=== PATIENT | female | born 1965 | race Caucasian/White ===

== ENCOUNTER → 2017-06-16 | Outpatient (CLI) | payer BC ==
--- NOTE | 2017-06-17 09:40 | MM ---
Reason for exam: screening (asymptomatic). Last mammogram was performed 11 years and 10 months ago. History: Patient is postmenopausal. Physical Findings: A clinical breast exam by your physician is recommended on an annual basis and results should be correlated with mammographic findings. MG Screening Mammo w CAD Bilateral CC and MLO view(s) were taken. No prior studies available for comparison. There are scattered fibroglandular densities. No suspicious abnormality. ASSESSMENT: Negative, BI-RAD 1 RECOMMENDATION: Routine screening mammogram of both breasts in 1 year.
== END | disposition home or self-care (01) ==
LOC: RADMAMWWP 16:38
PROVIDERS: ATTEND Family Medicine
DX: Z12.31 Encounter for screening mammogram for malignant neoplasm of breast (principal)

== ENCOUNTER → 2020-07-14 | Outpatient (CLI) | payer OTHER ==
[2020-07-14 14:48] LABS: Basophils # (A) 0.1 k/uL (0-0.2); Basophils % (A) 1 %; Eosinophils # (A) 0.2 k/uL (0-0.7); Eosinophils % (A) 2 %; HCT 53.2 % (34.0-46.0); HGB 17.1 gm/dL (11.4-16.0); Lymphocytes # (A) 2.8 k/uL (1.0-4.8); Lymphocytes % (A) 26 %; MCH 33.4 pg (25.0-35.0); MCHC 32.2 g/dL (31.0-37.0); MCV 103.8 fL (80.0-100.0); Macrocytosis Slight; Mean Platelet Volume 6.6; Monocytes # (A) 0.6 k/uL (0-1.0); Monocytes % (A) 6 %; Neutrophils % (A) 65 %; Platelet Count 274 k/uL (150-450); RBC 5.12 m/uL (3.80-5.40); RDW 13.4 % (11.5-15.5); WBC 10.7 k/uL (3.8-10.6)
== END | disposition home or self-care (01) ==
LOC: LABPAT 14:02
PROVIDERS: ATTEND Orthopaedic Surgery
DX: Z01.818 Encounter for other preprocedural examination (principal); T84.89XD Other specified complication of internal orthopedic prosthetic devices, implants and grafts, subsequent encounter
CPT/HCPCS: 36415; 80051; 85025

== ENCOUNTER 2020-07-18 06:17 | Day surgery (SDC) | payer BC, OTHER ==
[2020-07-17 10:44] VITALS: BMI 33.3
--- NOTE | 2020-07-17 11:05 | HP ---
HISTORY AND PHYSICAL CHIEF COMPLAINT: Right ankle pain. HISTORY OF PRESENT ILLNESS: The patient is a 55-year-old female who presents after undergoing open reduction and internal fixation of her right distal fibula fracture in 2013 with increasing symptoms recently over hardware. Typically she ambulates independently. Currently she is using a walking boot. She takes Percocet 3 times a day. PAST MEDICAL HISTORY: Significant for asthma, depression, seizures, emphysema, CVA, hypertension. PAST SURGICAL HISTORY: Significant for previous right ankle surgery in addition to previous gastric procedure. CURRENT MEDICATIONS: Atenolol, cyclobenzaprine, lovastatin, Plavix, oxybutynin, Percocet. She notes allergies to DEMEROL. FAMILY HISTORY: Unknown. SOCIAL HISTORY: Significant for 1 pack per day tobacco use in addition to daily alcohol use. 16 POINT REVIEW OF SYSTEMS: Otherwise reviewed and is noncontributory. PHYSICAL EXAMINATION: On examination, the patient is approximately 5 foot 3 inch, 200 pounds of endomorphic habitus. HEENT: Exam is nonfocal. NECK: Supple. She has painless passive motion right hip. She is nontender about the right knee and proximal fibula. On examination of right ankle, she has tenderness about the lateral hardware. The lateral incision is well healed with no warmth or erythema. 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 Ankle motion 0-30 degrees of flexion. Her distal neurovascular exam appears to be intact. X-rays of the right ankle obtained in the office show previous ORIF of the distal fibula along with syndesmotic fixation. IMPRESSION: 1. History of ORIF, right distal fibular fracture with syndesmotic fixation with symptomatic hardware. 2. History of CVA with residual right hemiplegia. RECOMMENDATIONS: I talked to the patient and her regarding her condition along with treatment options. At this point. She notes she is symptomatic and opts to proceed with surgery. We will plan to proceed with removal of her hardware. We will likely put her back in her fracture boot after the procedure. She did hold her Plavix prior to the procedure and will likely restart that directly thereafter. MMODL / IJN: [id number] /
[~2020-07-18 06:17] MED LIST: DEXAMETHASONE SOD PHOSPHATE 10 MG/ML 1 ML VIAL IV ONE; LACTATED RINGERS 1,000 ML IV SCH; LIDOCAINE 1% (10MG/ML) FOR IV START INTRADERMA PRN; MIDAZOLAM 2 MG/2 ML VIAL IV PRN; ONDANSETRON 4 MG/2 ML VIAL IVP ONE
--- NOTE | 2020-07-18 07:44 | P.ANPRN ---
Procedure Note - Anesthesia - Nerve Block Performed Right Other (see comment) Time Out Performed: Yes (0717) Date of Procedure: 07/18/20 Procedure Start Time: 07:18 Procedure Stop Time: 07:35 Location of Patient: PreOp Indication: Acute Post-Operative Pain, Analgesia, Requested by Surgeon Specifically requested for management of pain by : Osvaldo Crooks Sedation Type: Sedate with meaningful contact maintained Preparation: Sterile Prep Position: Left Lateral Catheter: None Needle Types: Pajunk Needle Gauge: 20 Ultrasound used to visualize needle placement: Yes Ultrasound used to observe medication spread: Yes Injectate: Other (see comment) (0.5% ropivacaine 20 mL each site) Blood Aspirated: No Pain Paresthesia on Injection Noted: No Resistance on Injection: Normal Image Stored and Saved: Yes (R POPLITEAL AND R ADDUCTOR CANAL BLOCK) Events: Uneventful and Well Tolerated
[2020-07-18] MEDS ORDERED: ROPIVACAINE 5 MG/ML 30 ML VIAL ONE (07:49)
[2020-07-18] MEDS ORDERED: HYDROmorphone (PF) 1 MG/ML ONE (07:49)
[2020-07-18] MEDS ORDERED: ROCURONIUM BROMIDE 10 MG/ML 5 ML VIAL IV ONE (07:49)
[2020-07-18] MEDS ORDERED: fentaNYL (PF) 50 MCG/ML 2 ML AMP ONE (07:49)
[2020-07-18] MEDS ORDERED: NEOSTIGMINE 1 MG/ML 10 ML VIAL ONE (07:49)
[2020-07-18] MEDS ORDERED: LIDOCAINE 1% INJ 10MG/ML (20 ML MDV) ONE (07:49)
[2020-07-18] MEDS ORDERED: GLYCOPYRROLATE 0.2 MG/ML 2 ML VIAL ONE (07:49)
[2020-07-18] MEDS ORDERED: PROPOFOL 10 MG/ML 20 ML VIAL IV ONE (07:49)
[2020-07-18] MEDS ORDERED: ceFAZolin 1,000 MG in SODIUM CHLORIDE 0.9% 1,000 ML IRRIGATION ONE (08:20)
--- NOTE | 2020-07-18 09:08 | P.OP ---
Date of Procedure: 07/18/20 Preoperative Diagnosis: Irritating hardware right lateral ankle Postoperative Diagnosis: Same Procedure(s) Performed: Removal hardware right lateral ankle including syndesmotic screw and one third tubular plate Anesthesia: MINNA Surgeon: Osvaldo Crooks Estimated Blood Loss (ml): 5 Pathology: none sent Condition: stable Disposition: PACU Indications for Procedure: The patient's a 55-year-old female who previously underwent fixation of a right lateral ankle fracture with syndesmotic fixation who presents many years later with irritation over the hardware. A discussion of the risks and benefits of hardware removal was made with the patient. She opted to proceed. Operative v ersus to include infection, neurovascular injury, development of blood clots, possible refracture, possible need for subsequent procedures was discussed. Informed consent was obtained. Operative Findings: As below Description of Procedure: The patient was brought to the operating room, and after induction of general anesthesia the right lower extremity was prepped and draped in normal fashion. The tourniquet was inflated to 270 mmHg. The previous lateral incision was utilized extending approximately 8 cm. Skin was incised sharply. Subcutaneous tissues were divided bluntly. Electrocautery was used for hemostasis. The lateral plate was identified. The syndesmotic screw was removed. The remaining screws were removed including the lag screw. The plate was then removed. The wound was thoroughly irrigated. The subcu change tissues reapproximated interrupted 2-0 Vicryl sutures. The skin was reapproximated with 3-0 subcuticular Prolene suture. Steri-Strips were applied. A sterile dressing was applied in addition to her walking boot. The tourniquet was deflated with less than 30 minutes total tourniquet time. The patient was awoken from general anesthesia and transferred to recovery room in good condition. Blood loss was estimated at 5 mL. No complications were incurred.
[2020-07-18 09:09] VITALS: TEMP 96.9
[2020-07-18] MEDS: HYDROmorphone 0.5 MG/0.5 ML SYRINGE IVP PRN ×4 (09:22→09:39)
[2020-07-18] MEDS ORDERED: LABETALOL SYRINGE 5 MG/ML IVP ONE (09:30)
[2020-07-18] MEDS ORDERED: LACTATED RINGERS 1,000 ML IV ONE (09:34)
[2020-07-18 09:48] VITALS: RESP 16
[2020-07-18] MEDS ORDERED: oxyCODONE-APAP 10-325MG 1 EACH TAB PO ONE (10:00)
[2020-07-18 10:29] VITALS: BP 133/67; PULSE 77
== END 2020-07-18 11:04 | disposition home or self-care (01) ==
LOC: OR 06:17
PROVIDERS: ATTEND Orthopaedic Surgery
DX: T84.89XD Other specified complication of internal orthopedic prosthetic devices, implants and grafts, subsequent encounter (principal); I69.351 Hemiplegia and hemiparesis following cerebral infarction affecting right dominant side; J45.909 Unspecified asthma, uncomplicated; F32.9 Major depressive disorder, single episode, unspecified; J43.9 Emphysema, unspecified; I10 Essential (primary) hypertension; E78.5 Hyperlipidemia, unspecified; F17.210 Nicotine dependence, cigarettes, uncomplicated; Z87.81 Personal history of (healed) traumatic fracture; Z79.891 Long term (current) use of opiate analgesic; Z86.69 Personal history of other diseases of the nervous system and sense organs; Z98.890 Other specified postprocedural states; Z79.899 Other long term (current) drug therapy; Z79.02 Long term (current) use of antithrombotics/antiplatelets; Z88.5 Allergy status to narcotic agent; Z97.2 Presence of dental prosthetic device (complete) (partial); Z87.19 Personal history of other diseases of the digestive system
CPT/HCPCS: 20680; 64447; 64450; 76942; J2250; J1100; J2710; J0690 ×2; J2405; J2001; J3010; J1170 ×2; J2795; J2704; 64445

== ENCOUNTER 2020-11-03 15:05 | Inpatient (IN) | payer OTHER ==
[2020-11-03] MEDS ORDERED: ALBUTEROL HFA INHALER INHALATION STA (15:27)
[2020-11-03] MEDS ORDERED: ALBUTEROL HFA INHALER INHALATION PRN (15:27)
--- NOTE | 2020-11-03 15:30 | ED ---
General Adult HPI - General Chief complaint: Shortness of Breath Stated complaint: +Covid,LUIS Time Seen by Provider: 11/03/20 15:21 Source: patient, RN notes reviewed Mode of arrival: wheelchair Limitations: no limitations - History of Present Illness Initial comments: Patient is a pleasant 55-year-old female presenting to the emergency Department with complaints of difficulty breathing. Onset of symptoms was 3-4 days ago. Patient does have cough with some productive sputum. No fevers. Patient has been fatigued and achy. Patient did go to her doctor today and was found to have low oxygen. Patient did have covid test positive. Patient does have history of stroke and difficulty speaking. Family helps provide history. - Related Data Home Medications Medication Instructions Recorded Confirmed ALPRAZolam [Xanax] 0.25 mg PO Q6HR PRN 05/23/14 07/18/20 Albuterol Inhaler (Mhu) [Ventolin 2 puff INHALATION DIRECTED PRN 05/23/14 07/18/20 Hfa Inhaler (Mhu)] Cholecalciferol [Vitamin D3] 1,000 unit PO BID 05/23/14 07/18/20 Clopidogrel [Plavix] 75 mg PO DAILY 05/23/14 07/18/20 Lovastatin [Mevacor] 20 mg PO HS 05/23/14 07/18/20 Oxybutynin Chloride [Ditropan] 5 mg PO TID 05/23/14 07/18/20 atenoloL [Tenormin] 25 mg PO HS 05/23/14 07/18/20 lamoTRIgine [LaMICtal] 200 mg PO BID 05/23/14 07/18/20 oxyCODONE-APAP 10-325MG [Percocet 1 tab PO Q6HR PRN 05/23/14 07/18/20 10-325 mg] hydrOXYzine pamoate [Vistaril] 50 mg PO BID 07/17/20 07/18/20 Allergies Allergy/AdvReac Type Severity Reaction Status Date / Time meperidine HCl [From Demerol] Allergy Swelling Verified 11/03/20 16:40 Review of Systems ROS Statement: Those systems with pertinent positive or pertinent negative responses have been documented in the HPI. ROS Other: All systems not noted in ROS Statement are negative. Constitutional: Denies: fever Eyes: Denies: eye pain ENT: Denies: ear pain Respiratory: Reports: cough, dyspnea Cardiovascular: Denies: chest pain Endocrine: Reports: fatigue Gastrointestinal: Denies: abdominal pain Genitourinary: Denies: dysuria Musculoskeletal: Denies: back pain Skin: Denies: rash Neurological: Denies: weakness Past Medical History Past Medical History: CVA/TIA Additional Past Medical History / Comment(s): RIGHT SIDED WEAKNESS, LAST SEIZURE YEARS AGO, SPEECH DEFICIT, afo brace to right foot to prevent foot drop History of Any Multi-Drug Resistant Organisms: None Reported Past Surgical History: Hernia Repair, Orthopedic Surgery, Tubal Ligation Additional Past Surgical History / Comment(s): UMBILICAL HERNIA REPAIR, WITH MESH IN AND REMOVED, WOUND VAC POST. LEFT ANKLE ORIF WITH METAL, right ankle ORIF r/t fall 05-10-2014 Past Anesthesia/Blood Transfusion Reactions: No Reported Reaction Past Psychological History: Anxiety, Depression Smoking Status: Current every day smoker Past Alcohol Use History: Heavy Past Drug Use History: None Reported General Exam Limitations: no limitations General appearance: alert, in no apparent distress Head exam: Present: normocephalic Eye exam: Present: normal appearance Neck exam: Present: normal inspection Respiratory exam: Present: wheezes, rhonchi Cardiovascular Exam: Present: regular rate, normal rhythm GI/Abdominal exam: Present: soft. Absent: tenderness Extremities exam: Present: normal inspection. Absent: pedal edema, calf tenderness Neurological exam: Present: alert Psychiatric exam: Present: normal affect, normal mood Skin exam: Present: normal color Course Vital Signs 11/03/20 11/03/20 11/03/20 15:10 15:45 16:45 Temperature 99.0 F Pulse Rate 90 76 80 Respiratory 18 20 20 Rate Blood Pressure 122/69 95/57 101/58 O2 Sat by Pulse 88 L 94 L 96 Oximetry EKG Findings - EKG Comments: EKG Findings:: Normal sinus rhythm 81. IL 140. QRS 80. QT 362. QTC 420. Normal axis. Normal QRS. No acute ST change. Medical Decision Making - Medical Decision Making Patient reevaluated and resting comfortably in bed. Patient and family updated on results and plan. Case was discussed in detail with the Suboxone, who will admit his patient. - Lab Data Result diagrams: 11/03/20 15:35 11/03/20 15:35 Lab Results 11/03/20 11/03/20 11/03/20 Range/Units 15:35 15:35 15:35 WBC 12.3 H (3.8-10.6) k/uL RBC 4.70 (3.80-5.40) m/uL Hgb 16.1 H (11.4-16.0) gm/dL Hct 48.2 H (34.0-46.0) % MCV 102.4 H (80.0-100.0) fL MCH 34.3 (25.0-35.0) pg MCHC 33.5 (31.0-37.0) g/dL RDW 12.8 (11.5-15.5) % Plt Count 263 (150-450) k/uL MPV 6.9 Neutrophils % 77 % Lymphocytes % 13 % Monocytes % 6 % Eosinophils % 2 % Basophils % 1 % Neutrophils # 9.5 H (1.3-7.7) k/uL Lymphocytes # 1.6 (1.0-4.8) k/uL Monocytes # 0.7 (0-1.0) k/uL Eosinophils # 0.2 (0-0.7) k/uL Basophils # 0.1 (0-0.2) k/uL Macrocytosis Slight PT 9.8 (9.0-12.0) sec INR 0.9 (<1.2) APTT 23.7 (22.0-30.0) sec Sodium 137 (137-145) mmol/L Potassium 3.9 (3.5-5.1) mmol/L Chloride 102 (98-107) mmol/L Carbon Dioxide 28 (22-30) mmol/L Anion Gap 7 mmol/L BUN 14 (7-17) mg/dL Creatinine 0.69 (0.52-1.04) mg/dL Est GFR (CKD-EPI)AfAm >90 (>60 ml/min/1.73 sqM) Est GFR (CKD-EPI)NonAf >90 (>60 ml/min/1.73 sqM) Glucose 120 H (74-99) mg/dL Plasma Lactic Acid Baljinder (0.7-2.0) mmol/L Calcium 9.4 (8.4-10.2) mg/dL Magnesium 1.9 (1.6-2.3) mg/dL Total Bilirubin 0.7 (0.2-1.3) mg/dL AST 27 (14-36) U/L ALT 22 (4-34) U/L Alkaline Phosphatase 71 (38-126) U/L Lactate Dehydrogenase 481 (313-618) U/L C-Reactive Protein 46.7 H (<10.0) mg/L Total Protein 7.2 (6.3-8.2) g/dL Albumin 4.2 (3.5-5.0) g/dL 11/03/20 Range/Units 15:35 WBC (3.8-10.6) k/uL RBC (3.80-5.40) m/uL Hgb (11.4-16.0) gm/dL Hct (34.0-46.0) % MCV (80.0-100.0) fL MCH (25.0-35.0) pg MCHC (31.0-37.0) g/dL RDW (11.5-15.5) % Plt Count (150-450) k/uL MPV Neutrophils % % Lymphocytes % % Monocytes % % Eosinophils % % Basophils % % Neutrophils # (1.3-7.7) k/uL Lymphocytes # (1.0-4.8) k/uL Monocytes # (0-1.0) k/uL Eosinophils # (0-0.7) k/uL Basophils # (0-0.2) k/uL Macrocytosis PT (9.0-12.0) sec INR (<1.2) APTT (22.0-30.0) sec Sodium (137-145) mmol/L Potassium (3.5-5.1) mmol/L Chloride (98-107) mmol/L Carbon Dioxide (22-30) mmol/L Anion Gap mmol/L BUN (7-17) mg/dL Creatinine (0.52-1.04) mg/dL Est GFR (CKD-EPI)AfAm (>60 ml/min/1.73 sqM) Est GFR (CKD-EPI)NonAf (>60 ml/min/1.73 sqM) Glucose (74-99) mg/dL Plasma Lactic Acid Baljinder 1.9 (0.7-2.0) mmol/L Calcium (8.4-10.2) mg/dL Magnesium (1.6-2.3) mg/dL Total Bilirubin (0.2-1.3) mg/dL AST (14-36) U/L ALT (4-34) U/L Alkaline Phosphatase (38-126) U/L Lactate Dehydrogenase (313-618) U/L C-Reactive Protein (<10.0) mg/L Total Protein (6.3-8.2) g/dL Albumin (3.5-5.0) g/dL - Radiology Data Radiology results: image reviewed (Chest x-ray reveals no acute process) Disposition Clinical Impression: COVID-19 Disposition: ADMITTED IP TO THIS HOSP Is patient prescribed a controlled substance at d/c from ED?: No Referrals: Rene Licona MD [Primary Care Provider] - 1-2 days Decision Time: 17:02
[2020-11-03 16:04] LABS: Basophils # (A) 0.1 k/uL (0-0.2); Basophils % (A) 1 %; Eosinophils # (A) 0.2 k/uL (0-0.7); Eosinophils % (A) 2 %; HCT 48.2 % (34.0-46.0); HGB 16.1 gm/dL (11.4-16.0); Lymphocytes # (A) 1.6 k/uL (1.0-4.8); Lymphocytes % (A) 13 %; MCH 34.3 pg (25.0-35.0); MCHC 33.5 g/dL (31.0-37.0); MCV 102.4 fL (80.0-100.0); Macrocytosis Slight; Mean Platelet Volume 6.9; Monocytes # (A) 0.7 k/uL (0-1.0); Monocytes % (A) 6 %; Neutrophils # (A) 9.5 k/uL (1.3-7.7); Neutrophils % (A) 77 %; Platelet Count 263 k/uL (150-450); RDW 12.8 % (11.5-15.5); WBC 12.3 k/uL (3.8-10.6)
[2020-11-03 16:15] LABS: INR 0.9 (<1.2); Partial Thromboplastin Time 23.7 sec (22.0-30.0); Prothrombin Time 9.8 sec (9.0-12.0)
[2020-11-03 16:17] LABS: ALT 22 U/L (4-34); AST 27 U/L (14-36); African American GFR (CKD) >90 (>60 ml/min/1.73 sqM); Albumin 4.2 g/dL (3.5-5.0); Alkaline Phosphatase 71 U/L (38-126); Anion Gap 7 mmol/L; Blood Urea Nitrogen 14 mg/dL (7-17); C Reactive Protein 46.7 mg/L (<10.0); Calcium 9.4 mg/dL (8.4-10.2); Carbon Dioxide 28 mmol/L (22-30); Chloride 102 mmol/L (98-107); Glucose 120 mg/dL (74-99); LDH 481 U/L (313-618); Magnesium 1.9 mg/dL (1.6-2.3); Non-African American GFR(CKD) >90 (>60 ml/min/1.73 sqM); Potassium 3.9 mmol/L (3.5-5.1); Sodium 137 mmol/L (137-145); Total Bilirubin 0.7 mg/dL (0.2-1.3); Total Protein 7.2 g/dL (6.3-8.2)
--- NOTE | 2020-11-03 16:27 | XR ---
EXAMINATION TYPE: XR chest 1V portable DATE OF EXAM: 11/03/2020 COMPARISON: Chest x-ray August 06, 2020 HISTORY: Cough, suspected covid 19 infection. TECHNIQUE: Single AP portable frontal upright view of the chest is obtained. FINDINGS: There is chronic parenchymal changes bilaterally without suspicious new focal air space op acity, pleural effusion, or pneumothorax seen. The cardiac silhouette size is stable and upper limit s of normal. Overlying EKG leads redemonstrated. The osseous structures are intact. IMPRESSION: Chronic changes without acute pulmonary infiltrate identified.
[2020-11-03] MEDS ORDERED: NALOXONE 0.4 MG/ML 1 ML VIAL IV PRN (17:03)
[2020-11-03] MEDS ORDERED: ACETAMINOPHEN TAB 325 MG TAB PO PRN (17:03)
[2020-11-03] MEDS: ENOXAPARIN 40 MG/0.4 ML SYRINGE SQ SCH (18:40)
[2020-11-03] MEDS: CHOLECALCIFEROL 1,000 UNIT TAB PO SCH (18:40)
[2020-11-03] MEDS: ZINC SULFATE 220 MG CAP PO SCH (18:40)
[2020-11-03] MEDS: DEXAMETHASONE SOD PHOSPHATE 10 MG/ML 1 ML VIAL IV SCH (18:40)
[2020-11-03] MEDS ORDERED: BENZONATATE 100 MG CAP PO PRN (18:43)
[2020-11-03] MEDS: ALBUTEROL HFA INHALER INHALATION SCH (20:01)
[2020-11-03] MEDS: lamoTRIgine 100 MG TAB PO SCH (20:22)
[2020-11-03] MEDS: DULoxetine HCL 30 MG CAPSULE.DR PO SCH (20:22)
[2020-11-03] MEDS: oxyCODONE-APAP 10-325MG 1 EACH TAB PO PRN (20:22)
[2020-11-03] MEDS: NICOTINE 14MG/24HR PATCH TRANSDERM SCH (20:22)
[2020-11-03] MEDS: ASCORBIC ACID 500 MG TAB PO SCH (20:22)
[2020-11-03] MEDS: ATORVASTATIN 10 MG TAB PO SCH (20:22)
[2020-11-03] MEDS: OXYBUTYNIN CHLORIDE 5 MG TAB PO SCH (20:31)
[2020-11-03] MEDS: busPIRone HCl 10 MG TAB PO SCH (21:01)
[2020-11-03] MEDS: SODIUM CHLORIDE 0.9% 1,000 ML IV SCH (22:02)
[2020-11-04 01:11] LABS: Ferritin 213.3 ng/mL (10.0-291.0)
[2020-11-04] MEDS: oxyCODONE-APAP 10-325MG 1 EACH TAB PO PRN ×4 (04:17→21:35)
[2020-11-04] MEDS: ALBUTEROL HFA INHALER INHALATION SCH ×4 (04:37→19:41)
[2020-11-04] MEDS: lamoTRIgine 100 MG TAB PO SCH ×2 (08:28→21:35)
[2020-11-04] MEDS: DULoxetine HCL 30 MG CAPSULE.DR PO SCH ×2 (08:28→21:35)
[2020-11-04] MEDS: hydroCHLOROthiazide 25 MG TAB PO SCH (08:28)
[2020-11-04] MEDS: CLOPIDOGREL 75 MG TAB PO SCH (08:28)
[2020-11-04] MEDS: ZINC SULFATE 220 MG CAP PO SCH (08:28)
[2020-11-04] MEDS: CHOLECALCIFEROL 1,000 UNIT TAB PO SCH (08:28)
[2020-11-04] MEDS: ASCORBIC ACID 500 MG TAB PO SCH ×2 (08:28→21:34)
[2020-11-04] MEDS: busPIRone HCl 10 MG TAB PO SCH ×3 (08:28→21:35)
[2020-11-04] MEDS: NICOTINE 14MG/24HR PATCH TRANSDERM SCH (08:29)
[2020-11-04] MEDS: ENOXAPARIN 40 MG/0.4 ML SYRINGE SQ SCH (08:29)
[2020-11-04] MEDS: DEXAMETHASONE SOD PHOSPHATE 10 MG/ML 1 ML VIAL IV SCH (08:30)
[2020-11-04] MEDS: OXYBUTYNIN CHLORIDE 5 MG TAB PO SCH ×3 (08:31→21:34)
[2020-11-04] MEDS: SODIUM CHLORIDE 0.9% 1,000 ML IV SCH (16:56)
--- NOTE | 2020-11-04 19:35 | P.HPIM ---
History of Present Illness H&P Date: 11/04/20 Chief Complaint: shortness of breath Stephanie Fraser is a 55 yo F with PMH of tobacco abuse, CVA with residual speech deficit who presented to the ED after being seen in her PCP clinic with shortness of breath over the past few days. She also complains of chest tightness cough and fever. Denies loss of sense of smell or taste. Pt was seen in PCP clinic and rapid COVID test at that time was positive. On presentation temp 99, SpO2 88% on RA, WBC 12k, procalcitonin 0.10, CRP 47. CXR no acute process. Review of Systems All systems: negative Constitutional: Reports malaise, Reports weakness, Denies chills, Denies fever Eyes: denies blurred vision, denies pain Ears, nose, mouth and throat: Denies headache, Denies sore throat Cardiovascular: Denies chest pain, Denies shortness of breath Respiratory: Reports congestion, Reports cough, Reports dyspnea Gastrointestinal: Denies abdominal pain, Denies diarrhea, Denies nausea, Denies vomiting Genitourinary: Denies dysuria, Denies hematuria Musculoskeletal: Denies myalgias Integumentary: Denies pruritus, Denies rash Neurological: Denies numbness, Denies weakness Psychiatric: Denies anxiety, Denies depression Endocrine: Denies fatigue, Denies weight change Past Medical History Past Medical History: CVA/TIA, Seizure Disorder Additional Past Medical History / Comment(s): RIGHT SIDED WEAKNESS, LAST SEIZURE YEARS AGO, SPEECH DEFICIT, afo brace to right foot to prevent foot drop History of Any Multi-Drug Resistant Organisms: None Reported Past Surgical History: Hernia Repair, Orthopedic Surgery, Tubal Ligation Additional Past Surgical History / Comment(s): UMBILICAL HERNIA REPAIR, WITH MESH IN AND REMOVED, WOUND VAC POST. LEFT ANKLE ORIF WITH METAL, right ankle ORIF r/t fall 05-10-2014 Past Anesthesia/Blood Transfusion Reactions: No Reported Reaction Past Psychological History: Anxiety, Depression Smoking Status: Current every day smoker Past Alcohol Use History: Heavy Additional Past Alcohol Use History / Comment(s): 1ppd since teens, used to drink alot years ago, doesn't drink to excess anymore since stroke Past Drug Use History: None Reported - Past Family History Father Family Medical History: Coronary Artery Disease (CAD), Diabetes Mellitus Brother(s) Family Medical History: Coronary Artery Disease (CAD) Mother Family Medical History: Coronary Artery Disease (CAD), Diabetes Mellitus Medications and Allergies Home Medications Medication Instructions Recorded Confirmed Type Clopidogrel [Plavix] 75 mg PO DAILY 05/23/14 11/03/20 History Lovastatin [Mevacor] 20 mg PO HS 05/23/14 11/03/20 History Oxybutynin Chloride [Ditropan] 5 mg PO TID 05/23/14 11/03/20 History lamoTRIgine [LaMICtal] 200 mg PO BID 05/23/14 11/03/20 History oxyCODONE-APAP 10-325MG [Percocet 1 tab PO Q6HR PRN 05/23/14 11/03/20 History 10-325 mg] Albuterol Sulfate [Albuterol 2 puff INHALATION RT-QID PRN 11/03/20 11/03/20 History Sulfate Hfa] Benzonatate [Tessalon Perles] 100 mg PO TID PRN 11/03/20 11/03/20 History DULoxetine HCL [Cymbalta] 30 mg PO BID 11/03/20 11/03/20 History Meloxicam [Mobic] 15 mg PO DAILY PRN 11/03/20 11/03/20 History amLODIPine BESYLATE/BENAZEPRIL 1 cap PO DAILY 11/03/20 11/03/20 History [amLODIPine BESYLATE/BENAZEPRIL 10-20 MG] busPIRone HCl [Buspar] 10 mg PO TID 11/03/20 11/03/20 History hydroCHLOROthiazide [Hydrodiuril] 25 mg PO DAILY 11/03/20 11/03/20 History Allergies Allergy/AdvReac Type Severity Reaction Status Date / Time meperidine HCl [From Demerol] Allergy Swelling Verified 11/03/20 18:05 Physical Exam Vitals: Vital Signs Temp Pulse Resp BP Pulse Ox 11/04/20 17:35 98.3 F 64 19 151/75 95 11/04/20 15:27 93 L 11/04/20 11:00 98.1 F 85 19 123/67 93 L 11/04/20 07:44 93 L 11/04/20 05:00 98.4 F 81 20 131/72 91 L 11/03/20 20:03 91 L 11/03/20 20:00 98.9 F 81 20 93/57 93 L 11/03/20 19:50 20 Intake and Output 11/04/20 11/04/20 11/04/20 06:59 14:59 22:59 Intake Total 600 Balance 600 Intake: Oral 600 Other: Voiding Method Toilet # Voids 1 3 General: well nourished, well developed, NAD, obese. Vitals reviewed Eyes: PERRL, EOMI, conjunctiva normal HENT: normocephalic, mucus membranes moist Neck: supple, no JVD Lungs: diminished air entry, wheezing noted, no rales CV: Regular rate and rhythm, no murmur. Peripheral pulses 2+ Abdomen: soft, nondistended, no organomegaly Lymph: no cervical or axillary LAD Skin: warm and dry. Neuro: A&Ox3, normal mood and affect Results CBC & Chem 7: 11/03/20 15:35 11/03/20 15:35 Labs: Abnormal Lab Results - Last 24 Hours (Table) 11/03/20 Range/Units 15:35 Procalcitonin 0.10 H (0.02-0.09) ng/mL Microbiology - Last 24 Hours (Table) 11/03/20 15:35 Blood Culture - Preliminary Blood No Growth after 24 hours 11/03/20 15:45 Blood Culture - Preliminary Blood No Growth after 24 hours Thrombosis Risk Factor Assmnt - Choose All That Apply Any of the Below Risk Factors Present?: Yes Each Factor Represents 1 point: Age 41-60 years, Obesity (BMI >25), Serious lung disease incl. pneumonia (< 1month) Other Risk Factors: No Other congenital or acquired thrombophilia - If yes, enter type in comment: No Thrombosis Risk Factor Assessment Total Risk Factor Score: 3 Thrombosis Risk Factor Assessment Level: Moderate Risk Assessment and Plan (1) CVA (cerebral vascular accident) Current Visit: Yes Status: Acute Code(s): I63.9 - CEREBRAL INFARCTION, UNSPECIFIED SNOMED Code(s): 461695547 (2) COVID-19 Current Visit: Yes Status: Acute Code(s): U07.1 - COVID-19 SNOMED Code(s): 304927410 (3) Chronic back pain Current Visit: Yes Status: Acute Code(s): M54.9 - DORSALGIA, UNSPECIFIED; G89.29 - OTHER CHRONIC PAIN SNOMED Code(s): 798597413 Plan: 1. COVID 19 pneumonia. Admit and start vit C, vit D, zinc. Start dexamethasone. supplemental O2 2. Hx CVA and seizure disorder. Continue lamictal 3. Chronic back pain. Continue home percocet DVT prophylaxis lovenox
[2020-11-04] MEDS: ATORVASTATIN 10 MG TAB PO SCH (21:34)
[2020-11-05] MEDS: ALBUTEROL HFA INHALER INHALATION SCH ×2 (00:47→07:34)
[2020-11-05] MEDS: oxyCODONE-APAP 10-325MG 1 EACH TAB PO PRN ×2 (01:33→08:42)
[2020-11-05] MEDS: ENOXAPARIN 40 MG/0.4 ML SYRINGE SQ SCH (08:40)
[2020-11-05] MEDS: hydroCHLOROthiazide 25 MG TAB PO SCH (08:49)
[2020-11-05] MEDS: CHOLECALCIFEROL 1,000 UNIT TAB PO SCH (08:49)
[2020-11-05] MEDS: DEXAMETHASONE SOD PHOSPHATE 10 MG/ML 1 ML VIAL IV SCH (08:49)
[2020-11-05] MEDS: busPIRone HCl 10 MG TAB PO SCH (08:49)
[2020-11-05] MEDS: CLOPIDOGREL 75 MG TAB PO SCH (08:49)
[2020-11-05] MEDS: DULoxetine HCL 30 MG CAPSULE.DR PO SCH (08:49)
[2020-11-05] MEDS: ASCORBIC ACID 500 MG TAB PO SCH (08:49)
[2020-11-05] MEDS: NICOTINE 14MG/24HR PATCH TRANSDERM SCH (08:49)
[2020-11-05] MEDS: lamoTRIgine 100 MG TAB PO SCH (08:49)
[2020-11-05] MEDS: ZINC SULFATE 220 MG CAP PO SCH (08:51)
[2020-11-05] MEDS: OXYBUTYNIN CHLORIDE 5 MG TAB PO SCH (09:03)
[2020-11-05 11:03] VITALS: BP 138/83; PULSE 78; RESP 17; TEMP 98.3
--- NOTE | 2020-11-05 11:24 | P.DS ---
Providers Date of admission: 11/03/20 17:04 Expected date of discharge: 11/05/20 Attending physician: Rene Licona MD Primary care physician: Rene Licona MD Hospital Course: Final Diagnoses: Acute Covid-19 pneumonia History of CVA History of seizure disorder Chronic back pain Hospital course: Stephanie Fraser is a 55 yo F with PMH of tobacco abuse, CVA with residual speech deficit who presented to the ED after being seen in her PCP clinic with shortness of breath over the past few days. She also complains of chest tightness cough and fever. Denies loss of sense of smell or taste. Pt was seen in PCP clinic and rapid COVID test at that time was positive. On presentation temp 99, SpO2 88% on RA, WBC 12k, procalcitonin 0.10, CRP 47. CXR no acute process. Significant clinical improvement. Patient being discharged home today in a stable condition with guarded prognosis. Smoking cessation reinforced. The impression and plan of care has been dictated as directed. : I performed a history and examination of this patient, discussed the same with the dictator. I agree with the dictator's note ,documented as a scribe. Any additional findings or plans will be noted. Patient Condition at Discharge: Stable Plan - Discharge Summary New Discharge Prescriptions: New Nicotine 14Mg/24Hr Patch [Habitrol] 1 patch TRANSDERM DAILY #30 patch dexAMETHasone [Hexadrol] See Taper PO DAILY #18 tab Zinc Sulfate [Orazinc] 220 mg PO DAILY cap Ascorbic Acid [Vitamin C] 500 mg PO BID tab Cholecalciferol [Vitamin D3 (25 Mcg = 1000 Iu)] 2,000 unit PO DAILY tab Continue oxyCODONE-APAP 10-325MG [Percocet 10-325 mg] 1 tab PO Q6HR PRN PRN Reason: Pain lamoTRIgine [LaMICtal] 200 mg PO BID Oxybutynin Chloride [Ditropan] 5 mg PO TID Lovastatin [Mevacor] 20 mg PO HS Clopidogrel [Plavix] 75 mg PO DAILY Albuterol Sulfate [Albuterol Sulfate Hfa] 2 puff INHALATION RT-QID PRN PRN Reason: Shortness Of Breath amLODIPine BESYLATE/BENAZEPRIL [amLODIPine BESYLATE/BENAZEPRIL 10-20 MG] 1 cap PO DAILY Benzonatate [Tessalon Perles] 100 mg PO TID PRN PRN Reason: Cough busPIRone HCl [Buspar] 10 mg PO TID DULoxetine HCL [Cymbalta] 30 mg PO BID hydroCHLOROthiazide [Hydrodiuril] 25 mg PO DAILY Meloxicam [Mobic] 15 mg PO DAILY PRN PRN Reason: knee pain Discharge Medication List Clopidogrel [Plavix] 75 mg PO DAILY 05/23/14 [History] Lovastatin [Mevacor] 20 mg PO HS 05/23/14 [History] Oxybutynin Chloride [Ditropan] 5 mg PO TID 05/23/14 [History] lamoTRIgine [LaMICtal] 200 mg PO BID 05/23/14 [History] oxyCODONE-APAP 10-325MG [Percocet 10-325 mg] 1 tab PO Q6HR PRN 05/23/14 [History] Albuterol Sulfate [Albuterol Sulfate Hfa] 2 puff INHALATION RT-QID PRN 11/03/20 [History] Benzonatate [Tessalon Perles] 100 mg PO TID PRN 11/03/20 [History] DULoxetine HCL [Cymbalta] 30 mg PO BID 11/03/20 [History] Meloxicam [Mobic] 15 mg PO DAILY PRN 11/03/20 [History] amLODIPine BESYLATE/BENAZEPRIL [amLODIPine BESYLATE/BENAZEPRIL 10-20 MG] 1 cap PO DAILY 11/03/20 [History] busPIRone HCl [Buspar] 10 mg PO TID 11/03/20 [History] hydroCHLOROthiazide [Hydrodiuril] 25 mg PO DAILY 11/03/20 [History] Ascorbic Acid [Vitamin C] 500 mg PO BID tab 11/05/20 [Rx] Cholecalciferol [Vitamin D3 (25 Mcg = 1000 Iu)] 2,000 unit PO DAILY tab 11/05/20 [Rx] Nicotine 14Mg/24Hr Patch [Habitrol] 1 patch TRANSDERM DAILY #30 patch 11/05/20 [Rx] Zinc Sulfate [Orazinc] 220 mg PO DAILY cap 11/05/20 [Rx] dexAMETHasone [Hexadrol] See Taper PO DAILY #18 tab 11/05/20 [Rx] Follow up Appointment(s)/Referral(s): Rene Licona MD [Primary Care Provider] - 1-2 days (Appointment is scheduled for a virtual visit on 11/07/20 at 1:45pm. Office will call prior to instruct patient on how to have a virtual visit.) Patient Instructions/Handouts: Viral Pneumonia (DC) Activity/Diet/Wound Care/Special Instructions: Code Quarantine
== END 2020-11-05 12:20 | disposition home or self-care (01) | DRG 177 ==
LOC: EC 15:05 → 6NMEDSUR 17:04
PROVIDERS: ADMIT Family Medicine; ATTEND Family Medicine
DX: U07.1 COVID-19 (principal); J12.82 Pneumonia due to coronavirus disease 2019; I69.351 Hemiplegia and hemiparesis following cerebral infarction affecting right dominant side; I69.328 Other speech and language deficits following cerebral infarction; G40.909 Epilepsy, unspecified, not intractable, without status epilepticus; G89.29 Other chronic pain; M54.9 Dorsalgia, unspecified; F32.9 Major depressive disorder, single episode, unspecified; F41.9 Anxiety disorder, unspecified; Z71.6 Tobacco abuse counseling; F17.210 Nicotine dependence, cigarettes, uncomplicated; Z79.02 Long term (current) use of antithrombotics/antiplatelets; Z79.1 Long term (current) use of non-steroidal anti-inflammatories (NSAID); Z79.899 Other long term (current) drug therapy; Z82.49 Family history of ischemic heart disease and other diseases of the circulatory system; Z83.3 Family history of diabetes mellitus; E66.9 Obesity, unspecified; Z68.39 Body mass index [BMI] 39.0-39.9, adult; Z98.51 Tubal ligation status; Z88.5 Allergy status to narcotic agent
CPT/HCPCS: 36415; 71045; 80053; 82728; 83605; 83615; 83735; 84145; 85025; 85610; 85730; 86140; 87040; 93005; 94640; 94760; 99285